=== PATIENT | male | born 1970 | race Caucasian/White ===

== ENCOUNTER 2016-11-20 09:24 | Inpatient (IN) ==
--- NOTE | 2016-11-20 09:37 | Emergency Department Note ---
Disposition Clinical Impression: Pneumonia, Sepsis, Altered mental status Disposition: Admitted As Inpatient Condition: Fair General Adult HPI - General Chief complaint: ED Fever Stated complaint: Hypoxia, AMS, Fever Time Seen by Provider: 11/20/16 09:32 Source: patient, family Limitations: no limitations - History of Present Illness Pain Scale: 10 - Related Data Home Medications Medication Instructions Recorded Confirmed Albuterol Sulfate [Proair Hfa] 2 puff IH Q4H PRN 11/20/16 11/20/16 BuPROPion SR (12 HR) [Wellbutrin 200 mg PO QAM 11/20/16 11/20/16 SR] Budesonide/Formoterol 160/4.5 2 puff IH BIDR 11/20/16 11/20/16 [Symbicort 160/4.5] Imipramine HCl [Tofranil] 50 mg PO HS 11/20/16 11/20/16 Ipratropium/Albuterol Neb [Duoneb] 3 ml IH Q6HR 11/20/16 11/20/16 [place] Carbonate 900 mg PO HS 11/20/16 11/20/16 Lovastatin 10 mg PO DAILY 11/20/16 11/20/16 Morphine Sulfate/Naltrexone 1 cap PO BID 11/20/16 11/20/16 [Embeda ER 30-1.2 mg Capsule] Omeprazole [PriLOSEC] 40 mg PO DAILY 11/20/16 11/20/16 Oxybutynin [Ditropan] 5 mg PO BID 11/20/16 11/20/16 Pregabalin [Lyrica] 150 mg PO TID 11/20/16 11/20/16 Zolpidem [Ambien] 10 mg PO HS 11/20/16 11/20/16 diazePAM [Valium] 10 mg PO TID 11/20/16 11/20/16 lamoTRIgine [Lamictal] 400 mg PO DAILY 11/20/16 11/20/16 Allergies Allergy/AdvReac Type Severity Reaction Status Date / Time vancomycin Allergy Hives Verified 11/20/16 09:25 Past Medical History - Past Medical History Medical history: Reports: COPD, hypertension Psychiatric history: Reports: bipolar, PTSD - Social History Smoking Status: Former smoker Smokeless Tobacco Status: No Alcohol use: Reports: none Drug use: Reports: none Physical Exam - General Limitations: no limitations General appearance: alert, in no apparent distress Course Vital Signs Temperature 101.2 F H 11/20/16 09:25 Pulse Rate 108 11/20/16 09:25 Respiratory Rate 18 11/20/16 09:25 Blood Pressure 115/77 11/20/16 09:25 O2 Sat by Pulse Oximetry 84 11/20/16 09:25 Temperature 98.2 F 11/20/16 16:25 Pulse Rate 74 11/20/16 16:25 Respiratory Rate 15 11/20/16 16:25 Blood Pressure 101/68 11/20/16 16:25 O2 Sat by Pulse Oximetry 95 11/20/16 16:25 Oxygen Delivery Oxygen Delivery Nasal Cannula Medical Decision Making - Lab Data Result diagrams: 11/20/16 09:51 11/20/16 09:51 Lab Results 11/20/16 11/20/16 11/20/16 Range/Units 09:47 09:51 09:51 WBC 12.2 H (4.3-11.1) K/mcL RBC 4.77 (4.19-5.50) M/mcL Hgb 14.1 (12.9-16.9) g/dL Hct 44.5 (37.5-50.1) % MCV 93.3 (83.0-100.0) fL MCH 29.6 (28.0-33.3) pg MCHC 31.7 (31.6-35.5) g/dL RDW 13.0 (11.5-14.5) % Plt Count 402 H (140-400) K/mcL MPV 9.1 L (9.4-12.4) fL Immature Gran % 0.3 (0-4) % Seg Neutrophils % 84.2 % Lymphocytes % 10.0 % Monocytes % 3.0 % Eosinophils % 2.3 % Basophils % 0.2 % Neutrophils # 10.2 H (1.6-8.9) K/mcL Lymphocytes # 1.2 (0.6-4.6) K/mcL Monocytes # 0.4 (0.0-1.3) K/mcL Eosinophils # 0.3 (0.0-0.6) K/mcL Basophils # 0.0 (0.0-0.2) K/mcL PT 11.6 (9.4-12.1) Seconds INR 1.1 APTT 34.4 (26.0-36.0) Seconds ABG pH 7.41 (7.32-7.45) pH Units ABG pCO2 45 (35-45) mmHg ABG pO2 57 L (85-104) mmHg ABG HCO3 28.5 H (21-27) mEQ/L ABG Total CO2 29.9 H (20-26) mEq/L ABG O2 Saturation 90 L (95-98) % ABG Base Excess 3.2 H (-2.0 to 3.0) mEq/L Blood Gas Modality [place] Inspired O2 36 % Sodium (136-145) mEq/L Potassium (3.5-4.5) mEq/L Chloride (98-109) mEq/L Carbon Dioxide (19-29) mEq/L BUN (8-26) mg/dL Creatinine (0.72-1.25) mg/dL Est GFR ( Amer) (> 60) Est GFR (Non-Af Amer) (> 60) BUN/Creatinine Ratio (6-26) Glucose (70-99) mg/dL Calculated Osmolality (280-300) Lactic Acid (0.5-2.2) mmol/L Calcium (8.6-10.8) mg/dL Phosphorus (2.3-4.7) mg/dL Magnesium (1.6-2.6) mg/dL Total Bilirubin (0.2-1.2) mg/dL Direct Bilirubin (0.0-0.5) mg/dL Indirect Bilirubin (0.0-1.2) mg/dL AST (5-34) Units/L ALT (0-55) Units/L Alkaline Phosphatase (38-126) Units/L Troponin I (0-0.03) ng/mL Serum Total Protein (6.0-8.3) g/dL Albumin (3.5-5.0) g/dL Globulin (2.4-3.5) g/dL Albumin/Globulin Ratio (1.1-2.2) Urine Color (Yellow) Urine Clarity (Clear) Urine pH (5.0-8.0) pH Units Ur Specific [place] (1.010-1.025) Urine Protein (Neg-Trace) mg/dL Urine Glucose (UA) (Normal) mg/dL Urine Ketones (Negative) mg/dL Urine Blood (Negative) Urine Nitrite (Negative) Urine Bilirubin (Negative) Urine Urobilinogen (Normal) mg/dL Ur Leukocyte Esterase (Negative) Ur Culture Indicated? (NO) 11/20/16 11/20/16 11/20/16 Range/Units 09:51 09:51 09:51 WBC (4.3-11.1) K/mcL RBC (4.19-5.50) M/mcL Hgb (12.9-16.9) g/dL Hct (37.5-50.1) % MCV (83.0-100.0) fL MCH (28.0-33.3) pg MCHC (31.6-35.5) g/dL RDW (11.5-14.5) % Plt Count (140-400) K/mcL MPV (9.4-12.4) fL Immature Gran % (0-4) % Seg Neutrophils % % Lymphocytes % % Monocytes % % Eosinophils % % Basophils % % Neutrophils # (1.6-8.9) K/mcL Lymphocytes # (0.6-4.6) K/mcL Monocytes # (0.0-1.3) K/mcL Eosinophils # (0.0-0.6) K/mcL Basophils # (0.0-0.2) K/mcL PT (9.4-12.1) Seconds INR APTT (26.0-36.0) Seconds ABG pH (7.32-7.45) pH Units ABG pCO2 (35-45) mmHg ABG pO2 (85-104) mmHg ABG HCO3 (21-27) mEQ/L ABG Total CO2 (20-26) mEq/L ABG O2 Saturation (95-98) % ABG Base Excess (-2.0 to 3.0) mEq/L Blood Gas Modality Inspired O2 % Sodium 143 (136-145) mEq/L Potassium 4.3 (3.5-4.5) mEq/L Chloride 106 (98-109) mEq/L Carbon Dioxide 28 (19-29) mEq/L BUN 12 (8-26) mg/dL Creatinine 1.20 (0.72-1.25) mg/dL Est GFR ( Amer) > 60 (> 60) Est GFR (Non-Af Amer) > 60 (> 60) BUN/Creatinine Ratio 10 (6-26) Glucose 109 H (70-99) mg/dL Calculated Osmolality 296 (280-300) Lactic Acid 1.3 (0.5-2.2) mmol/L Calcium 9.3 (8.6-10.8) mg/dL Phosphorus 2.7 (2.3-4.7) mg/dL Magnesium 2.2 (1.6-2.6) mg/dL Total Bilirubin 0.4 (0.2-1.2) mg/dL Direct Bilirubin 0.2 (0.0-0.5) mg/dL Indirect Bilirubin 0.2 (0.0-1.2) mg/dL AST 14 (5-34) Units/L ALT 9 (0-55) Units/L Alkaline Phosphatase 103 (38-126) Units/L Troponin I (0-0.03) ng/mL Serum Total Protein 8.0 (6.0-8.3) g/dL Albumin 3.6 (3.5-5.0) g/dL Globulin 4.4 H (2.4-3.5) g/dL Albumin/Globulin Ratio 0.8 L (1.1-2.2) Urine Color Yellow (Yellow) Urine Clarity Clear (Clear) Urine pH 6.5 (5.0-8.0) pH Units Ur Specific [place] 1.019 (1.010-1.025) Urine Protein Negative (Neg-Trace) mg/dL Urine Glucose (UA) Normal (Normal) mg/dL Urine Ketones Negative (Negative) mg/dL Urine Blood Negative (Negative) Urine Nitrite Negative (Negative) Urine Bilirubin Negative (Negative) Urine Urobilinogen Normal (Normal) mg/dL Ur Leukocyte Esterase Negative (Negative) Ur Culture Indicated? NO (NO) 11/20/16 Range/Units 09:51 WBC (4.3-11.1) K/mcL RBC (4.19-5.50) M/mcL Hgb (12.9-16.9) g/dL Hct (37.5-50.1) % MCV (83.0-100.0) fL MCH (28.0-33.3) pg MCHC (31.6-35.5) g/dL RDW (11.5-14.5) % Plt Count (140-400) K/mcL MPV (9.4-12.4) fL Immature Gran % (0-4) % Seg Neutrophils % % Lymphocytes % % Monocytes % % Eosinophils % % Basophils % % Neutrophils # (1.6-8.9) K/mcL Lymphocytes # (0.6-4.6) K/mcL Monocytes # (0.0-1.3) K/mcL Eosinophils # (0.0-0.6) K/mcL Basophils # (0.0-0.2) K/mcL PT (9.4-12.1) Seconds INR APTT (26.0-36.0) Seconds ABG pH (7.32-7.45) pH Units ABG pCO2 (35-45) mmHg ABG pO2 (85-104) mmHg ABG HCO3 (21-27) mEQ/L ABG Total CO2 (20-26) mEq/L ABG O2 Saturation (95-98) % ABG Base Excess (-2.0 to 3.0) mEq/L Blood Gas Modality Inspired O2 % Sodium (136-145) mEq/L Potassium (3.5-4.5) mEq/L Chloride (98-109) mEq/L Carbon Dioxide (19-29) mEq/L BUN (8-26) mg/dL Creatinine (0.72-1.25) mg/dL Est GFR ( Amer) (> 60) Est GFR (Non-Af Amer) (> 60) BUN/Creatinine Ratio (6-26) Glucose (70-99) mg/dL Calculated Osmolality (280-300) Lactic Acid (0.5-2.2) mmol/L Calcium (8.6-10.8) mg/dL Phosphorus (2.3-4.7) mg/dL Magnesium (1.6-2.6) mg/dL Total Bilirubin (0.2-1.2) mg/dL Direct Bilirubin (0.0-0.5) mg/dL Indirect Bilirubin (0.0-1.2) mg/dL AST (5-34) Units/L ALT (0-55) Units/L Alkaline Phosphatase (38-126) Units/L Troponin I 0.01 (0-0.03) ng/mL Serum Total Protein (6.0-8.3) g/dL Albumin (3.5-5.0) g/dL Globulin (2.4-3.5) g/dL Albumin/Globulin Ratio (1.1-2.2) Urine Color (Yellow) Urine Clarity (Clear) Urine pH (5.0-8.0) pH Units Ur Specific [place] (1.010-1.025) Urine Protein (Neg-Trace) mg/dL Urine Glucose (UA) (Normal) mg/dL Urine Ketones (Negative) mg/dL Urine Blood (Negative) Urine Nitrite (Negative) Urine Bilirubin (Negative) Urine Urobilinogen (Normal) mg/dL Ur Leukocyte Esterase (Negative) Ur Culture Indicated? (NO) Critical Care Time Critical Care Time: Yes Total Critical Care Time: 30 Attestation: Patient presented with confusion and a fever. He met sepsis criteria. Broad spectrum antibiotics initiated. Admitted to the medicine service Attestation Statement - Attestation Attestation: I examined this patient and my medical decision-making was reviewed with the MANAGING PARTNER/PA/Advanced Practice Nurse/Resident Physician. I agree with the documented findings, disposition and treatment plan as described except to the extent set forth below. [id number] time provided Patient presents to the care of his spouse and son for generalized weakness, confusion, fever. He was recently admitted to the intensive care unit at an outside facility for pneumonia. He completed his outpatient course of antibiotics. The patient is febrile and tachycardic upon presentation. Sepsis pathway initiated. 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
--- NOTE | 2016-11-20 09:43 | Emergency Department Note ---
Disposition Clinical Impression: Pneumonia Qualifiers: Pneumonia type: due to unspecified organism Laterality: right Lung location: lower lobe of lung Qualified Code(s): J18.1 - Lobar pneumonia, unspecified organism Sepsis Qualifiers: Sepsis type: sepsis due to unspecified organism Qualified Code(s): A41.9 - Sepsis, unspecified organism Altered mental status Qualifiers: Altered mental status type: unspecified Qualified Code(s): R41.82 - Altered mental status, unspecified Disposition: Admitted As Inpatient Condition: Fair General Adult HPI - General Chief complaint: ED Fever Stated complaint: Hypoxia, AMS, Fever Time Seen by Provider: 11/20/16 09:32 Source: patient, family Mode of arrival: ambulatory Limitations: no limitations Nursing Notes Reviewed: Yes Vital Signs Reviewed: Yes - History of Present Illness HPI Narrative: 46-year-old male with a history of COPD, hypertension, traumatic brain injury and recurrent pneumonia presents for evaluation for concerns of pneumonia. Patient was recently hospitalized with ICU admission at [facility] last Monday. Patient was discharged on Monday. Patient completed his outpatient antx which included Augmentin as well as Levaquin. Noted to have worsening shortness of breath and hypoxia in the past 24 hours. Family states that he has been more confused recently. No evidence of trauma. Confusion is described as word salad and "talking out of his head". Patient family states that he did have oxygen saturation of 88%. Typically is on 2 L as needed. Has hx of TBI with residual R leg weakness. Denies any abdominal pain. No nausea vomiting. No anti-inflammatories prior to arrival. Temperature noted to be 101 Fahrenheit prior to arrival. Family states the patient was on Zosyn and Levaquin with improvement. Hx of Vancomycin with hives. Pain Scale: 10 - Related Data Home Medications Medication Instructions Recorded Confirmed Albuterol Sulfate [Proair Hfa] 2 puff IH Q4H PRN 11/20/16 11/20/16 BuPROPion SR (12 HR) [Wellbutrin 200 mg PO QAM 11/20/16 11/20/16 SR] Budesonide/Formoterol 160/4.5 2 puff IH BIDR 11/20/16 11/20/16 [Symbicort 160/4.5] Imipramine HCl [Tofranil] 50 mg PO HS 11/20/16 11/20/16 Ipratropium/Albuterol Neb [Duoneb] 3 ml IH Q6HR 11/20/16 11/20/16 [place] Carbonate 900 mg PO HS 11/20/16 11/20/16 Lovastatin 10 mg PO DAILY 11/20/16 11/20/16 Morphine Sulfate/Naltrexone 1 cap PO BID 11/20/16 11/20/16 [Embeda ER 30-1.2 mg Capsule] Omeprazole [PriLOSEC] 40 mg PO DAILY 11/20/16 11/20/16 Oxybutynin [Ditropan] 5 mg PO BID 11/20/16 11/20/16 Pregabalin [Lyrica] 150 mg PO TID 11/20/16 11/20/16 Zolpidem [Ambien] 10 mg PO HS 11/20/16 11/20/16 diazePAM [Valium] 10 mg PO TID 11/20/16 11/20/16 lamoTRIgine [Lamictal] 400 mg PO DAILY 11/20/16 11/20/16 Allergies Allergy/AdvReac Type Severity Reaction Status Date / Time vancomycin Allergy Hives Verified 11/20/16 09:25 All systems ED: reviewed and negative except as stated. Constitutional: Reports: as per HPI, fever Eyes: Reports: as per HPI ENT ED: Reports: as per HPI Cardiovascular: Reports: as per HPI Respiratory: Reports: as per HPI, cough, dyspnea Gastrointestinal: Reports: as per HPI. Denies: nausea, vomiting Genitourinary: Reports: as per HPI Musculoskeletal: Reports: as per HPI Integumentary: Reports: as per HPI Neurological: Reports: as per HPI Psychiatric: Reports: as per HPI Endocrine: Reports: as per HPI Hematological/Lymphatic: Reports: as per HPI Past Medical History - Past Medical History Medical history: Reports: COPD, hypertension Psychiatric history: Reports: bipolar, PTSD - Social History Smoking Status: Former smoker Smokeless Tobacco Status: No Alcohol use: Reports: none Drug use: Reports: none Physical Exam - General Limitations: no limitations General appearance: alert, in no apparent distress - Head Head exam: atraumatic, normocephalic, normal inspection - Eye Eye exam: Present: normal appearance, PERRL, EOMI - ENT ENT exam: normal exam, normal oropharynx, mucous membranes moist - Neck Neck exam: Present: normal inspection, full ROM, trachea midline - Chest Chest inspection: Present: normal inspection, symmetric chest wall rise - Respiratory Respiratory exam: Present: other (Diffusely decreased breath sounds). Absent: wheezes - Cardiovascular Cardiovascular exam: Present: regular rate, normal rhythm, normal heart sounds - Abdominal Exam Abdominal exam: Present: soft, Non-Tender - Extremities Exam Extremities exam: Present: normal inspection. Absent: pedal edema - Back Exam Back exam: Present: normal inspection. Absent: CVA tenderness (R), CVA tenderness (L) - Neurological Exam Neurological exam: Present: alert, other (Confused) - Skin Skin exam: Present: warm, dry, intact, normal color Course Course Narrative: Initial concerns for sepsis given the patient's mental status, hypoxia, and history. Patient will receive a sepsis workup including labs. Possible source pneumonia. Patient will get chest x-ray, labs, EKG, fluids anti-inflammatories and antibiotics. - Reevaluation(s) Reevaluation #1: Seen and examined. Patient's receiving IV fluid hydration. Patient remains tachycardic. Patient is not hypoxic but is on increased oxygen supplementation. Concerns for pneumonia and started on antibiotics which were similar to antibiotics the patient received at [facility] with improvement. Family wishes to stay at [place]. Does not wish to be transferred back to [facility]. Time: 10:21 Reevaluation #2: Updated on plan of care. Time: 10:59 Vital Signs Temperature 101.2 F H 11/20/16 09:25 Pulse Rate 108 11/20/16 09:25 Respiratory Rate 18 11/20/16 09:25 Blood Pressure 115/77 11/20/16 09:25 O2 Sat by Pulse Oximetry 84 11/20/16 09:25 Temperature 101.2 F H 11/20/16 09:25 Pulse Rate 100 11/20/16 11:00 Respiratory Rate 20 11/20/16 11:40 Blood Pressure 123/78 11/20/16 11:40 O2 Sat by Pulse Oximetry 94 11/20/16 11:00 Oxygen Delivery Oxygen Delivery Nasal Cannula Medical Decision Making - MDM Narrative Medical decision making narrative: 46-year-old male presents for evaluation of hypoxia and concerns for pneumonia. Patient was recently hospitalized in the past week. The patient was treated with Zosyn as well as Levaquin inpatient with success. Patient completed his outpatient bionics Augmentin and Levaquin recently. In the past 24 hours the patient's family report that he has been having altered mental status with word salad and confusion. Denies history of head injury. Denies any anticoagulation. Patient is alert and does appear to have rapid speech. Patient has a history of traumatic brain injury with residual right lower extremity weakness. Otherwise neuro exam is unremarkable. Patient did have a temperature and given his history and hypoxia concerns for sepsis pneumonia. Patient was treated with IV fluid hydration 30 mL/kg as well as appropriate antibiotics with Zosyn and Levaquin. Patient does not exhibit any meningeal signs or symptoms. No neck stiffness. Patient will get a head CT to rule out any potential bleeding. Patient updated on plan of care. Family agreed. Patient will be admitted to the hospitalist service for further care and monitoring. - Lab Data Lab results reviewed: Yes I reviewed the patient's lab results. Result diagrams: 11/20/16 09:51 11/20/16 09:51 Lab Results 11/20/16 11/20/16 11/20/16 Range/Units 09:47 09:51 09:51 WBC 12.2 H (4.3-11.1) K/mcL RBC 4.77 (4.19-5.50) M/mcL Hgb 14.1 (12.9-16.9) g/dL Hct 44.5 (37.5-50.1) % MCV 93.3 (83.0-100.0) fL MCH 29.6 (28.0-33.3) pg MCHC 31.7 (31.6-35.5) g/dL RDW 13.0 (11.5-14.5) % Plt Count 402 H (140-400) K/mcL MPV 9.1 L (9.4-12.4) fL Immature Gran % 0.3 (0-4) % Seg Neutrophils % 84.2 % Lymphocytes % 10.0 % Monocytes % 3.0 % Eosinophils % 2.3 % Basophils % 0.2 % Neutrophils # 10.2 H (1.6-8.9) K/mcL Lymphocytes # 1.2 (0.6-4.6) K/mcL Monocytes # 0.4 (0.0-1.3) K/mcL Eosinophils # 0.3 (0.0-0.6) K/mcL Basophils # 0.0 (0.0-0.2) K/mcL PT 11.6 (9.4-12.1) Seconds INR 1.1 APTT 34.4 (26.0-36.0) Seconds ABG pH 7.41 (7.32-7.45) pH Units ABG pCO2 45 (35-45) mmHg ABG pO2 57 L (85-104) mmHg ABG HCO3 28.5 H (21-27) mEQ/L ABG Total CO2 29.9 H (20-26) mEq/L ABG O2 Saturation 90 L (95-98) % ABG Base Excess 3.2 H (-2.0 to 3.0) mEq/L Blood Gas Modality [place] Inspired O2 36 % Sodium (136-145) mEq/L Potassium (3.5-4.5) mEq/L Chloride (98-109) mEq/L Carbon Dioxide (19-29) mEq/L BUN (8-26) mg/dL Creatinine (0.72-1.25) mg/dL Est GFR ( Amer) (> 60) Est GFR (Non-Af Amer) (> 60) BUN/Creatinine Ratio (6-26) Glucose (70-99) mg/dL Calculated Osmolality (280-300) Lactic Acid (0.5-2.2) mmol/L Calcium (8.6-10.8) mg/dL Phosphorus (2.3-4.7) mg/dL Magnesium (1.6-2.6) mg/dL Total Bilirubin (0.2-1.2) mg/dL Direct Bilirubin (0.0-0.5) mg/dL Indirect Bilirubin (0.0-1.2) mg/dL AST (5-34) Units/L ALT (0-55) Units/L Alkaline Phosphatase (38-126) Units/L Troponin I (0-0.03) ng/mL Serum Total Protein (6.0-8.3) g/dL Albumin (3.5-5.0) g/dL Globulin (2.4-3.5) g/dL Albumin/Globulin Ratio (1.1-2.2) Urine Color (Yellow) Urine Clarity (Clear) Urine pH (5.0-8.0) pH Units Ur Specific [place] (1.010-1.025) Urine Protein (Neg-Trace) mg/dL Urine Glucose (UA) (Normal) mg/dL Urine Ketones (Negative) mg/dL Urine Blood (Negative) Urine Nitrite (Negative) Urine Bilirubin (Negative) Urine Urobilinogen (Normal) mg/dL Ur Leukocyte Esterase (Negative) Ur Culture Indicated? (NO) 11/20/16 11/20/16 11/20/16 Range/Units 09:51 09:51 09:51 WBC (4.3-11.1) K/mcL RBC (4.19-5.50) M/mcL Hgb (12.9-16.9) g/dL Hct (37.5-50.1) % MCV (83.0-100.0) fL MCH (28.0-33.3) pg MCHC (31.6-35.5) g/dL RDW (11.5-14.5) % Plt Count (140-400) K/mcL MPV (9.4-12.4) fL Immature Gran % (0-4) % Seg Neutrophils % % Lymphocytes % % Monocytes % % Eosinophils % % Basophils % % Neutrophils # (1.6-8.9) K/mcL Lymphocytes # (0.6-4.6) K/mcL Monocytes # (0.0-1.3) K/mcL Eosinophils # (0.0-0.6) K/mcL Basophils # (0.0-0.2) K/mcL PT (9.4-12.1) Seconds INR APTT (26.0-36.0) Seconds ABG pH (7.32-7.45) pH Units ABG pCO2 (35-45) mmHg ABG pO2 (85-104) mmHg ABG HCO3 (21-27) mEQ/L ABG Total CO2 (20-26) mEq/L ABG O2 Saturation (95-98) % ABG Base Excess (-2.0 to 3.0) mEq/L Blood Gas Modality Inspired O2 % Sodium 143 (136-145) mEq/L Potassium 4.3 (3.5-4.5) mEq/L Chloride 106 (98-109) mEq/L Carbon Dioxide 28 (19-29) mEq/L BUN 12 (8-26) mg/dL Creatinine 1.20 (0.72-1.25) mg/dL Est GFR ( Amer) > 60 (> 60) Est GFR (Non-Af Amer) > 60 (> 60) BUN/Creatinine Ratio 10 (6-26) Glucose 109 H (70-99) mg/dL Calculated Osmolality 296 (280-300) Lactic Acid 1.3 (0.5-2.2) mmol/L Calcium 9.3 (8.6-10.8) mg/dL Phosphorus 2.7 (2.3-4.7) mg/dL Magnesium 2.2 (1.6-2.6) mg/dL Total Bilirubin 0.4 (0.2-1.2) mg/dL Direct Bilirubin 0.2 (0.0-0.5) mg/dL Indirect Bilirubin 0.2 (0.0-1.2) mg/dL AST 14 (5-34) Units/L ALT 9 (0-55) Units/L Alkaline Phosphatase 103 (38-126) Units/L Troponin I (0-0.03) ng/mL Serum Total Protein 8.0 (6.0-8.3) g/dL Albumin 3.6 (3.5-5.0) g/dL Globulin 4.4 H (2.4-3.5) g/dL Albumin/Globulin Ratio 0.8 L (1.1-2.2) Urine Color Yellow (Yellow) Urine Clarity Clear (Clear) Urine pH 6.5 (5.0-8.0) pH Units Ur Specific [place] 1.019 (1.010-1.025) Urine Protein Negative (Neg-Trace) mg/dL Urine Glucose (UA) Normal (Normal) mg/dL Urine Ketones Negative (Negative) mg/dL Urine Blood Negative (Negative) Urine Nitrite Negative (Negative) Urine Bilirubin Negative (Negative) Urine Urobilinogen Normal (Normal) mg/dL Ur Leukocyte Esterase Negative (Negative) Ur Culture Indicated? NO (NO) 11/20/16 Range/Units 09:51 WBC (4.3-11.1) K/mcL RBC (4.19-5.50) M/mcL Hgb (12.9-16.9) g/dL Hct (37.5-50.1) % MCV (83.0-100.0) fL MCH (28.0-33.3) pg MCHC (31.6-35.5) g/dL RDW (11.5-14.5) % Plt Count (140-400) K/mcL MPV (9.4-12.4) fL Immature Gran % (0-4) % Seg Neutrophils % % Lymphocytes % % Monocytes % % Eosinophils % % Basophils % % Neutrophils # (1.6-8.9) K/mcL Lymphocytes # (0.6-4.6) K/mcL Monocytes # (0.0-1.3) K/mcL Eosinophils # (0.0-0.6) K/mcL Basophils # (0.0-0.2) K/mcL PT (9.4-12.1) Seconds INR APTT (26.0-36.0) Seconds ABG pH (7.32-7.45) pH Units ABG pCO2 (35-45) mmHg ABG pO2 (85-104) mmHg ABG HCO3 (21-27) mEQ/L ABG Total CO2 (20-26) mEq/L ABG O2 Saturation (95-98) % ABG Base Excess (-2.0 to 3.0) mEq/L Blood Gas Modality Inspired O2 % Sodium (136-145) mEq/L Potassium (3.5-4.5) mEq/L Chloride (98-109) mEq/L Carbon Dioxide (19-29) mEq/L BUN (8-26) mg/dL Creatinine (0.72-1.25) mg/dL Est GFR ( Amer) (> 60) Est GFR (Non-Af Amer) (> 60) BUN/Creatinine Ratio (6-26) Glucose (70-99) mg/dL Calculated Osmolality (280-300) Lactic Acid (0.5-2.2) mmol/L Calcium (8.6-10.8) mg/dL Phosphorus (2.3-4.7) mg/dL Magnesium (1.6-2.6) mg/dL Total Bilirubin (0.2-1.2) mg/dL Direct Bilirubin (0.0-0.5) mg/dL Indirect Bilirubin (0.0-1.2) mg/dL AST (5-34) Units/L ALT (0-55) Units/L Alkaline Phosphatase (38-126) Units/L Troponin I 0.01 (0-0.03) ng/mL Serum Total Protein (6.0-8.3) g/dL Albumin (3.5-5.0) g/dL Globulin (2.4-3.5) g/dL Albumin/Globulin Ratio (1.1-2.2) Urine Color (Yellow) Urine Clarity (Clear) Urine pH (5.0-8.0) pH Units Ur Specific [place] (1.010-1.025) Urine Protein (Neg-Trace) mg/dL Urine Glucose (UA) (Normal) mg/dL Urine Ketones (Negative) mg/dL Urine Blood (Negative) Urine Nitrite (Negative) Urine Bilirubin (Negative) Urine Urobilinogen (Normal) mg/dL Ur Leukocyte Esterase (Negative) Ur Culture Indicated? (NO) - Radiology Data Radiology results reviewed: Yes I reviewed the patient's radiology results. Chest X-Ray 11/20/16 09:34 IMPRESSION: Slightly increased interstitial opacities which may reflect pneumonia or edema. There is more focal airspace opacity in the right lung base which could also represent pneumonia in the appropriate clinical setting. D/ / Supriya Thomason MD / Supriya Thomason MD Interpreting Provider: Supriya Thomason MD - EKG Data EKG #1 EKG shows normal: sinus rhythm Rate: tachycardia Rhythm: NSR [place]/QRS: normal Interpretation: no acute changes, unchanged when compared to prior tracing (date ) S.B.A.R. - S.B.A.R. Situation: Demographics Background: Presenting Complaint Assessment: Vital Signs, Course and respsone to treatment, Patient/Family Expectation Recommendation: Barrier(s) to disposition, Recommendation based on pending studies, treatments, or consults S.B.A.R. Report Given to: Dr. Prater
[2016-11-20 09:58] LABS: ABG Base Excess 3.2 mEq/L (-2.0 to 3.0); ABG HCO3 28.5 mEQ/L (21-27); ABG Oxygen Saturation 90 % (95-98); ABG PCO2 45 mmHg (35-45); ABG PH 7.41 pH Units (7.32-7.45); ABG PO2 57 mmHg (85-104); ABG TCO2 29.9 mEq/L (20-26)
[2016-11-20 09:59] LABS: Blood Gas FiO2 36 %
[2016-11-20] MEDS: 0.9 % Sodium Chloride 1,000 ML IVC SCH ×4 (10:00→13:50)
[2016-11-20 10:04] LABS: Basophils % 0.2 %; Eosinophils # 0.3 K/mcL (0.0-0.6); Eosinophils % 2.3 %; Hematocrit 44.5 % (37.5-50.1); Hemoglobin 14.1 g/dL (12.9-16.9); Immature Granulocytes % 0.3 % (0-4); Lymphocytes # 1.2 K/mcL (0.6-4.6); Mean Corpuscular HGB Conc 31.7 g/dL (31.6-35.5); Mean Corpuscular Hemoglobin 29.6 pg (28.0-33.3); Mean Corpuscular Volume 93.3 fL (83.0-100.0); Mean Platelet Volume 9.1 fL (9.4-12.4); Monocytes # 0.4 K/mcL (0.0-1.3); Neutrophils # 10.2 K/mcL (1.6-8.9); Platelet Count 402 K/mcL (140-400); Red Blood Count 4.77 M/mcL (4.19-5.50); Segmented Neutrophils % 84.2 %
[2016-11-20 10:06] LABS: Bilirubin,Urine Negative (Negative); Blood,Urine Negative (Negative); Clarity,Urine Clear (Clear); Color,Urine Yellow (Yellow); Glucose,Urine (UA) Normal (Normal); Ketones,Urine Negative (Negative); Leukocyte Esterase,Urine Negative (Negative); Nitrite,Urine Negative (Negative); PH,Urine 6.5 pH Units (5.0-8.0); Protein,Urine Negative (Neg-Trace); Specific Gravity,Urine 1.019 (1.010-1.025); Urobilinogen,Urine Normal (Normal)
[2016-11-20 10:09] LABS: INR 1.1; Prothrombin Time 11.6 Seconds (9.4-12.1)
[2016-11-20] MEDS ORDERED: Piperacillin/Tazobactam 4.5 GM in D5% in Water (Mini-Bag+) 100 ML IVPB ONE ×2 (10:11→10:56)
[2016-11-20 10:12] LABS: Activated Partial Thrombo Time 34.4 Seconds (26.0-36.0)
[2016-11-20] MEDS ORDERED: Levofloxacin 750 MG/150 ML 750 MG/150 ML BAG IVPB ONE (10:13)
[2016-11-20 10:17] LABS: Alanine Aminotransferase 9 Units/L (0-55); Albumin 3.6 g/dL (3.5-5.0); Albumin/Globulin Ratio 0.8 (1.1-2.2); Alkaline Phosphatase 103 Units/L (38-126); Aspartate Amino Transferase 14 Units/L (5-34); BUN/Creatinine Ratio 10 (6-26); Bilirubin,Direct 0.2 mg/dL (0.0-0.5); Bilirubin,Indirect 0.2 mg/dL (0.0-1.2); Bilirubin,Total 0.4 mg/dL (0.2-1.2); Blood Urea Nitrogen 12 mg/dL (8-26); Calcium 9.3 mg/dL (8.6-10.8); Carbon Dioxide 28 mEq/L (19-29); Chloride 106 mEq/L (98-109); Globulin 4.4 g/dL (2.4-3.5); Glucose 109 mg/dL (70-99); Magnesium 2.2 mg/dL (1.6-2.6); Osmolality,Calculated 296 (280-300); Phosphorous 2.7 mg/dL (2.3-4.7); Potassium 4.3 mEq/L (3.5-4.5); Sodium 143 mEq/L (136-145); eGFR For African Americans > 60 (> 60); eGFR For Non-African Americans > 60 (> 60)
[2016-11-20] MEDS ORDERED: Naloxone 0.4 MG/ML INJ IVP PRN (12:21)
[2016-11-20] MEDS ORDERED: Acetaminophen 325 MG TABLET PO PRN (12:21)
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
[2016-11-20] MEDS ORDERED: Vancomycin 1,750 MG in D5% in Water 500 ML IVPB ONE (14:00)
[2016-11-20] MEDS ORDERED: Vancomycin (wt based) 1,000 MG VIAL IVPB SCH (14:00)
[2016-11-20] MEDS: diazePAM 10 MG TABLET PO SCH ×2 (15:34→19:52)
[2016-11-20] MEDS: Pregabalin 75 MG CAPSULE PO SCH ×2 (15:35→19:52)
[2016-11-20] MEDS ORDERED: Piperacillin/Tazobactam 3.375 GM in D5% in Water (Mini-Bag+) 100 ML IVPB SCH (16:00)
[2016-11-20] MEDS ORDERED: *HR* HYDROcodone/Acet 5/325 mg TABLET PO PRN (17:49)
[2016-11-20] MEDS: *HR* Morphine 2 MG/ML SYRINGE IVP PRN (18:02)
[2016-11-20] MEDS: Piperacillin/Tazobactam 3.375 GM in D5% in Water (Mini-Bag+) 100 ML IVPB SCH (19:51)
[2016-11-20] MEDS: Lithium Carbonate 300 MG CAPSULE PO SCH (19:52)
[2016-11-20] MEDS: Sennosides/Docusate Sodium TABLET PO SCH (19:52)
[2016-11-20] MEDS ORDERED: Ipratropium/Albuterol Neb 3 ML ONE (19:56)
[2016-11-20] MEDS: Ipratropium/Albuterol Neb 3 ML IH SCH (21:02)
[2016-11-20] MEDS: Budesonide/Formoterol 160/4.5 MDI IH SCH (21:02)
[2016-11-21] MEDS: Vancomycin 1,250 MG in D5% in Water 250 ML IVPB SCH ×2 (02:08→13:45)
[2016-11-21] MEDS: 0.9 % Sodium Chloride 1,000 ML IVC SCH ×2 (02:08→13:50)
[2016-11-21] MEDS: *HR* Morphine 2 MG/ML SYRINGE IVP PRN ×2 (02:10→11:25)
[2016-11-21] MEDS: Piperacillin/Tazobactam 3.375 GM in D5% in Water (Mini-Bag+) 100 ML IVPB SCH ×3 (03:14→20:30)
[2016-11-21] MEDS: Ipratropium/Albuterol Neb 3 ML IH SCH ×4 (03:48→21:23)
[2016-11-21 05:42] LABS: Basophils % 0.2 %; Eosinophils # 0.3 K/mcL (0.0-0.6); Eosinophils % 2.9 %; Hematocrit 36.5 % (37.5-50.1); Immature Granulocytes % 0.5 % (0-4); Lymphocytes % 18.2 %; Mean Corpuscular HGB Conc 31.8 g/dL (31.6-35.5); Mean Corpuscular Hemoglobin 29.8 pg (28.0-33.3); Mean Corpuscular Volume 93.8 fL (83.0-100.0); Mean Platelet Volume 9.6 fL (9.4-12.4); Monocytes # 0.4 K/mcL (0.0-1.3); Monocytes % 3.9 %; Neutrophils # 8.1 K/mcL (1.6-8.9); Platelet Count 324 K/mcL (140-400); Red Blood Count 3.89 M/mcL (4.19-5.50); Red Cell Distribution Width 13.1 % (11.5-14.5); Segmented Neutrophils % 74.3 %
[2016-11-21 05:43] LABS: Hemoglobin 11.6 g/dL (12.9-16.9)
[2016-11-21 05:57] LABS: BUN/Creatinine Ratio 9 (6-26); Blood Urea Nitrogen 8 mg/dL (8-26); Calcium 8.4 mg/dL (8.6-10.8); Carbon Dioxide 27 mEq/L (19-29); Chloride 109 mEq/L (98-109); Glucose 107 mg/dL (70-99); Osmolality,Calculated 291 (280-300); Potassium 3.9 mEq/L (3.5-4.5); Sodium 141 mEq/L (136-145); eGFR For African Americans > 60 (> 60); eGFR For Non-African Americans > 60 (> 60)
[2016-11-21] MEDS: *HR* Enoxaparin 40 MG/0.4 ML SYRINGE SQ SCH (06:09)
[2016-11-21] MEDS: lamoTRIgine 100 MG TABLET PO SCH (07:44)
[2016-11-21] MEDS: Pregabalin 75 MG CAPSULE PO SCH ×3 (07:45→21:58)
[2016-11-21] MEDS: Sennosides/Docusate Sodium TABLET PO SCH ×2 (07:45→22:00)
[2016-11-21] MEDS: BuPROPion SR (12 HR) 100 MG TABLET PO SCH (07:45)
[2016-11-21] MEDS: diazePAM 10 MG TABLET PO SCH ×3 (07:46→21:59)
[2016-11-21] MEDS: Levofloxacin 750 MG/150 ML 750 MG/150 ML BAG IVPB SCH (07:55)
[2016-11-21] MEDS ORDERED: Pantoprazole 40 MG VIAL IVP SCH (09:00)
[2016-11-21] MEDS: Budesonide/Formoterol 160/4.5 MDI IH SCH ×2 (10:26→21:24)
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
--- NOTE | 2016-11-21 11:55 | Electrocardiograph Report ---
[place] [id number] Test Date: 2016-11-20 Pat Name: Armando Munson Department: 103 Room: 24 Gender: M Cop Breaker: [facility] : 1970 Requested By: Richardson Barr Order Number: [id number] Reading MD: Derrick Keys MD Measurements Intervals [place] Rate: 106 P: 36 DC: 158 QRS: 5 QRSD: 77 T: 39 QT: 362 QTc: 424 Interpretive Statements SINUS TACHYCARDIA Poor R wave progression BASELINE ARTIFACT Electronically Signed On 11-21-2016 11:53:24 EDT by Derrick Keys MD
[2016-11-21] MEDS: *HR* OxyCODONE/APAP 10/325 TABLET PO PRN ×2 (13:44→21:59)
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
[2016-11-21] MEDS: Lithium Carbonate 300 MG CAPSULE PO SCH (22:00)
[2016-11-22 01:10] LABS: Hematocrit 35.7 % (37.5-50.1); Hemoglobin 11.2 g/dL (12.9-16.9); Mean Corpuscular HGB Conc 31.4 g/dL (31.6-35.5); Mean Corpuscular Hemoglobin 28.8 pg (28.0-33.3); Mean Corpuscular Volume 91.8 fL (83.0-100.0); Platelet Count 323 K/mcL (140-400); Red Blood Count 3.89 M/mcL (4.19-5.50); Red Cell Distribution Width 12.9 % (11.5-14.5)
[2016-11-22 01:24] LABS: BUN/Creatinine Ratio 9 (6-26); Blood Urea Nitrogen 8 mg/dL (8-26); Calcium 8.4 mg/dL (8.6-10.8); Carbon Dioxide 28 mEq/L (19-29); Chloride 110 mEq/L (98-109); Glucose 144 mg/dL (70-99); Osmolality,Calculated 297 (280-300); Potassium 3.9 mEq/L (3.5-4.5); Sodium 143 mEq/L (136-145); eGFR For African Americans > 60 (> 60); eGFR For Non-African Americans > 60 (> 60)
[2016-11-22] MEDS: MORPHINE PO SCH ×3 (01:41→21:20)
[2016-11-22] MEDS: NALTREXONE PO SCH ×3 (01:41→21:20)
[2016-11-22] MEDS: Vancomycin 1,250 MG in D5% in Water 250 ML IVPB SCH (02:47)
[2016-11-22] MEDS: Piperacillin/Tazobactam 3.375 GM in D5% in Water (Mini-Bag+) 100 ML IVPB SCH ×3 (03:16→19:59)
[2016-11-22] MEDS: *HR* OxyCODONE/APAP 10/325 TABLET PO PRN ×4 (03:21→16:46)
[2016-11-22] MEDS: Ipratropium/Albuterol Neb 3 ML IH SCH ×4 (04:09→21:33)
[2016-11-22] MEDS: *HR* Enoxaparin 40 MG/0.4 ML SYRINGE SQ SCH (05:15)
[2016-11-22] MEDS: 0.9 % Sodium Chloride 1,000 ML IVC SCH ×2 (08:27→21:32)
[2016-11-22] MEDS: lamoTRIgine 100 MG TABLET PO SCH (08:28)
[2016-11-22] MEDS: diazePAM 10 MG TABLET PO SCH ×3 (08:28→19:58)
[2016-11-22] MEDS: Pregabalin 75 MG CAPSULE PO SCH ×3 (08:28→19:58)
[2016-11-22] MEDS: Sennosides/Docusate Sodium TABLET PO SCH (08:28)
[2016-11-22] MEDS: BuPROPion SR (12 HR) 100 MG TABLET PO SCH (08:28)
[2016-11-22] MEDS: Levofloxacin 750 MG/150 ML 750 MG/150 ML BAG IVPB SCH (08:30)
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
--- NOTE | 2016-11-22 10:06 | EEG/EMG/Oth Biometrics Report ---
EEG Procedure Report Date of procedure: 11/22/16 EEG Procedure: Routine EEG Procedure Note: This is a report of a 21 channel bipolar and referential montage EEG. The posterior dominant rhythm consists of 6-7 Hz moderate voltage or frequency. This rhythm does not attenuate with eye opening. Hyperventilation was not performed during the recording. There is no sleep architecture identified during the study. Photic stimulation is performed and does not produce a driving response. The EKG rhythm strip reveals normal sinus rhythm at 90 bpm. Impressions: This EEG recording is abnormal, consistent with a mild generalized encephalopathy. There is no evidence of epileptiform activity identified during the recording. Comment: Etiologies to explain this interpretation might include toxic, metabolic, post ictal, degenerative, and posttraumatic. If the clinical suspicion for seizure activity is high, see EEGs or perhaps a prolonged recording may increase the yield. Please correlate clinically.
[2016-11-22] MEDS: Budesonide/Formoterol 160/4.5 MDI IH SCH ×2 (10:53→21:33)
--- NOTE | 2016-11-22 11:48 | Neurology Progress Note ---
Date of Encounter: 11/22/16 Time of Encounter: 11:46 Assessment and Plan (1) Traumatic brain injury Current Visit: No Status: Chronic I see obvious evidence of the previous traumatic brain injury, however see no evidence of any acute central nervous system process. I will reevaluate him at your request. Qualifiers: Encounter type: sequela Qualified Code(s): S06.9X9S - Unspecified intracranial injury with loss of consciousness of unspecified duration, sequela Subjective Interval history: The chart was reviewed, the patient was seen and examined. He is currently sitting up in bed in no acute distress. He is wearing his eyeglasses. Yesterday he had a repeat MRI scan of the brain which is unchanged from the previous study, and the EEG study I interpreted myself. Study revealed mild generalized encephalopathy, however no evidence of seizure activity. At this point Mr. Munson I believe is stable from a neurologic perspective. I see no evidence of any acute central nervous system process. He does have difficulty with central processing as a result of the previous traumatic brain injury. At this point however I would expect this should be static. He has numerous chronic pain complaints involving the back neck and lower extremities. Objective - Constitutional Vitals: Temp Pulse Resp BP Pulse Ox 97.6 F 86 16 115/75 97 11/22/16 11:02 11/22/16 11:02 11/22/16 11:02 11/22/16 11:02 11/22/16 11:02 - Neurological Exam Additional comments: Neurologic examination remains unchanged from yesterday from my perspective. He is awake, however his central processing is very bradyphrenic, and this is of course static due to previous traumatic brain injury. He is chronically deconditioned due to inactivity. I do not believe him to be encephalopathic however at this point. I see no evidence of an acute central nervous system infectious or inflammatory process. Results - Laboratory Findings CBC and BMP: 11/22/16 01:03 11/22/16 01:03 Abnormal lab findings: Abnormal lab results RBC 3.89 M/mcL (4.19-5.50) L 11/22/16 01:03 Hgb 11.2 g/dL (12.9-16.9) L 11/22/16 01:03 Hct 35.7 % (37.5-50.1) L 11/22/16 01:03 MCHC 31.4 g/dL (31.6-35.5) L 11/22/16 01:03 MPV 9.0 fL (9.4-12.4) L 11/22/16 01:03 ABG pO2 57 mmHg (85-104) L 11/20/16 09:47 ABG HCO3 28.5 mEQ/L (21-27) H 11/20/16 09:47 ABG Total CO2 29.9 mEq/L (20-26) H 11/20/16 09:47 ABG O2 Saturation 90 % (95-98) L 11/20/16 09:47 ABG Base Excess 3.2 mEq/L (-2.0 to 3.0) H 11/20/16 09:47 Chloride 110 mEq/L (98-109) H 11/22/16 01:03 Glucose 144 mg/dL (70-99) H 11/22/16 01:03 POC Glucose 101 (58-89) H 11/21/16 07:04 Calcium 8.4 mg/dL (8.6-10.8) L 11/22/16 01:03 Globulin 4.4 g/dL (2.4-3.5) H 11/20/16 09:51 Albumin/Globulin Ratio 0.8 (1.1-2.2) L 11/20/16 09:51 [place] 0.1 mEq/L (0.6-1.2) L 11/20/16 12:37 Consult Discharge Plan - Plan Referrals: Manuela Brown CNP [Advanced Practice Nurse] -
[2016-11-22] MEDS: Lithium Carbonate 300 MG CAPSULE PO SCH (19:59)
[2016-11-23] MEDS: Sennosides/Docusate Sodium TABLET PO SCH ×3 (00:26→20:09)
[2016-11-23] MEDS: Ipratropium/Albuterol Neb 3 ML IH SCH ×4 (04:18→23:08)
[2016-11-23] MEDS: Piperacillin/Tazobactam 3.375 GM in D5% in Water (Mini-Bag+) 100 ML IVPB SCH ×3 (04:36→20:08)
[2016-11-23] MEDS: *HR* Enoxaparin 40 MG/0.4 ML SYRINGE SQ SCH (04:36)
[2016-11-23 04:46] LABS: Hematocrit 37.8 % (37.5-50.1); Hemoglobin 11.4 g/dL (12.9-16.9); Mean Corpuscular HGB Conc 30.2 g/dL (31.6-35.5); Mean Corpuscular Hemoglobin 28.4 pg (28.0-33.3); Mean Corpuscular Volume 94.3 fL (83.0-100.0); Mean Platelet Volume 9.1 fL (9.4-12.4); Platelet Count 335 K/mcL (140-400); Red Blood Count 4.01 M/mcL (4.19-5.50); Red Cell Distribution Width 12.9 % (11.5-14.5)
[2016-11-23 05:01] LABS: BUN/Creatinine Ratio 8 (6-26); Blood Urea Nitrogen 7 mg/dL (8-26); Calcium 8.9 mg/dL (8.6-10.8); Carbon Dioxide 27 mEq/L (19-29); Chloride 109 mEq/L (98-109); Glucose 110 mg/dL (70-99); Osmolality,Calculated 291 (280-300); Sodium 141 mEq/L (136-145); eGFR For African Americans > 60 (> 60); eGFR For Non-African Americans > 60 (> 60)
[2016-11-23 05:06] LABS: Potassium 4.6 mEq/L (3.5-4.5)
[2016-11-23] MEDS ORDERED: Aminoglycoside Consult 1 EACH MC ONE (08:29)
[2016-11-23] MEDS: lamoTRIgine 100 MG TABLET PO SCH (08:44)
[2016-11-23] MEDS: diazePAM 10 MG TABLET PO SCH ×3 (08:45→20:09)
[2016-11-23] MEDS: BuPROPion SR (12 HR) 100 MG TABLET PO SCH (08:45)
[2016-11-23] MEDS: Pregabalin 75 MG CAPSULE PO SCH ×3 (08:45→20:09)
[2016-11-23] MEDS: Levofloxacin 750 MG/150 ML 750 MG/150 ML BAG IVPB SCH (08:46)
[2016-11-23] MEDS: MORPHINE PO SCH ×2 (10:02→20:39)
[2016-11-23] MEDS: NALTREXONE PO SCH ×2 (10:02→20:39)
[2016-11-23] MEDS: *HR* OxyCODONE/APAP 10/325 TABLET PO PRN ×3 (10:02→20:21)
[2016-11-23] MEDS: Budesonide/Formoterol 160/4.5 MDI IH SCH ×2 (10:32→23:08)
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
[2016-11-23] MEDS: 0.9 % Sodium Chloride 1,000 ML IVC SCH (11:45)
[2016-11-23] MEDS: Lithium Carbonate 300 MG CAPSULE PO SCH (20:09)
[2016-11-24] MEDS: 0.9 % Sodium Chloride 1,000 ML IVC SCH (00:20)
[2016-11-24] MEDS: Ipratropium/Albuterol Neb 3 ML IH SCH ×3 (03:42→15:36)
[2016-11-24] MEDS: Piperacillin/Tazobactam 3.375 GM in D5% in Water (Mini-Bag+) 100 ML IVPB SCH ×2 (04:21→11:43)
[2016-11-24] MEDS: *HR* OxyCODONE/APAP 10/325 TABLET PO PRN ×3 (04:27→15:48)
[2016-11-24] MEDS: *HR* Enoxaparin 40 MG/0.4 ML SYRINGE SQ SCH (06:08)
[2016-11-24 06:57] LABS: Hematocrit 37.2 % (37.5-50.1); Hemoglobin 11.7 g/dL (12.9-16.9); Mean Corpuscular HGB Conc 31.5 g/dL (31.6-35.5); Mean Corpuscular Hemoglobin 29.7 pg (28.0-33.3); Mean Corpuscular Volume 94.4 fL (83.0-100.0); Mean Platelet Volume 9.5 fL (9.4-12.4); Platelet Count 311 K/mcL (140-400); Red Blood Count 3.94 M/mcL (4.19-5.50)
[2016-11-24 07:10] LABS: BUN/Creatinine Ratio 9 (6-26); Blood Urea Nitrogen 8 mg/dL (8-26); Calcium 8.9 mg/dL (8.6-10.8); Carbon Dioxide 31 mEq/L (19-29); Chloride 107 mEq/L (98-109); Glucose 97 mg/dL (70-99); Osmolality,Calculated 292 (280-300); Potassium 4.1 mEq/L (3.5-4.5); Sodium 142 mEq/L (136-145); eGFR For African Americans > 60 (> 60); eGFR For Non-African Americans > 60 (> 60)
[2016-11-24] MEDS: lamoTRIgine 100 MG TABLET PO SCH (08:17)
[2016-11-24] MEDS: diazePAM 10 MG TABLET PO SCH ×2 (08:18→15:49)
[2016-11-24] MEDS: Sennosides/Docusate Sodium TABLET PO SCH (08:18)
[2016-11-24] MEDS: Pregabalin 75 MG CAPSULE PO SCH ×2 (08:18→15:49)
[2016-11-24] MEDS: BuPROPion SR (12 HR) 100 MG TABLET PO SCH (08:18)
[2016-11-24] MEDS ORDERED: levoFLOXacin 750 MG TABLET PO SCH (09:00)
[2016-11-24] MEDS: NALTREXONE PO SCH (09:29)
[2016-11-24] MEDS: MORPHINE PO SCH (09:29)
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
[2016-11-24] MEDS: Budesonide/Formoterol 160/4.5 MDI IH SCH (10:55)
[2016-11-24 11:24] VITALS: BP 106/75
== END 2016-11-24 16:49 | disposition home or self-care (01) | DRG 720 ==
LOC: EMEROO 09:24 → 2ANU 11:12
PROVIDERS: ADMIT Nurse Practitioner Acute Care; ATTEND Internal Medicine

== ENCOUNTER 2020-08-27 20:31 | Inpatient (IN) ==
[2020-08-27] MEDS ORDERED: 0.9 % Sodium Chloride 1,000 ML IVC ONE (20:40)
[2020-08-27] MEDS ORDERED: *HR* FentaNYL (PF) 1,000 MCG/20 ML VIAL ONE (20:47)
[2020-08-27 21:00] LABS: Basophils # 0.1 K/mcL (0.0-0.2); Basophils % 0.6 %; Eosinophils # 0.2 K/mcL (0.0-0.6); Eosinophils % 1.7 %; Hematocrit 46.2 % (37.5-50.1); Hemoglobin 15.2 g/dL (12.9-16.9); Immature Granulocytes % 0.4 % (0-4); Lymphocytes # 4.3 K/mcL (0.6-4.6); Lymphocytes % 41.4 %; Mean Corpuscular HGB Conc 32.9 g/dL (31.6-35.5); Mean Corpuscular Hemoglobin 32.6 pg (28.0-33.3); Mean Corpuscular Volume 99.1 fL (83.0-100.0); Mean Platelet Volume 9.4 fL (9.4-12.4); Monocytes # 0.8 K/mcL (0.0-1.3); Monocytes % 7.5 %; Platelet Count 289 K/mcL (140-400); Red Blood Count 4.66 M/mcL (4.19-5.50); Red Cell Distribution Width 12.2 % (11.5-14.5); Segmented Neutrophils % 48.4 %; White Blood Count 10.4 K/mcL (4.3-11.1)
[2020-08-27] MEDS: FentaNYL (PF) 1,000 MCG/100 ML IV.SOLN IVC SCH (21:00)
[2020-08-27] MEDS ORDERED: 0.9 % Sodium Chloride 1,000 ML ONE (21:05)
[2020-08-27 21:07] LABS: ABG Base Excess -6 mEq/L (-2 to 3); ABG HCO3 23 mEq/L (21-27); ABG Oxygen Saturation 100 % (95-98); ABG PCO2 56 mmHg (35-45); ABG PH 7.22 pH Units (7.32-7.45); ABG PO2 274 mmHg (85-104); ABG TCO2 25 mEq/L (20-26)
[2020-08-27 21:14] LABS: Bilirubin,Urine Negative (Negative); Blood,Urine Negative (Negative); Clarity,Urine Clear (Clear); Color,Urine Colorless (Yellow); Glucose,Urine (UA) Normal (Normal); Ketones,Urine Negative (Negative); Leukocyte Esterase,Urine Negative (Negative); Nitrite,Urine Negative (Negative); Protein,Urine Negative (Neg-Trace); Specific Gravity,Urine 1.006 (1.010-1.025); Urobilinogen,Urine Normal (Normal)
[2020-08-27 21:23] LABS: Alanine Aminotransferase 10 Units/L (7-52); Albumin 4.3 g/dL (3.5-5.7); Albumin/Globulin Ratio 1.3 (1.1-2.2); Alkaline Phosphatase 84 Units/L (34-104); Aspartate Amino Transferase 26 Units/L (13-39); BUN/Creatinine Ratio 15 (6-26); Bilirubin,Total 0.5 mg/dL (0.3-1.0); Blood Urea Nitrogen 14 mg/dL (6-20); Calcium 8.4 mg/dL (8.6-10.3); Carbon Dioxide 19 mEq/L (23-29); Chloride 101 mEq/L (98-107); Ethanol 414 mg/dL (Less than 10); Globulin 3.2 g/dL (2.4-3.5); Glucose 106 mg/dL (70-105); Lipase 17 Units/L (11-82); Osmolality,Calculated 281 (280-300); Potassium 3.6 mEq/L (3.5-5.1); Sodium 135 mEq/L (136-145); Total Protein 7.5 g/dL (6.4-8.9); Troponin I < 0.03 ng/mL (< 0.04); eGFR For African Americans > 60 (> 60); eGFR For Non-African Americans > 60 (> 60)
[2020-08-27 21:55] LABS: Amphetamine Screen,Urine Negative ng/mL (Cutoff=1000); Barbiturate Screen,Urine Negative ng/mL (Cutoff=200); Benzodiazepines Screen,Urine Positive ng/mL (Cutoff=200); Cannabinoid Screen,Urine Negative ng/mL (Cutoff = 50); Cocaine Screen,Urine Negative ng/mL (Cutoff= 300); Opiate Screen,Urine Negative ng/mL (Cutoff=300); Phencyclidine Screen,Urine Negative ng/mL (Cutoff=25)
[2020-08-27] MEDS ORDERED: Ampicillin/Sulbactam 1,500 MG in 0.9 % Sodium Chloride Mini Bag 100 ML IVPB ONE (22:44)
[2020-08-27] MEDS ORDERED: 0.9 % Sodium Chloride 1,000 ML IVC SCH (23:45)
[2020-08-27] MEDS ORDERED: Naloxone 0.4 MG/ML INJ IVP PRN (23:52)
[2020-08-28] MEDS ORDERED: Artificial Tears SOLN 15 ML BOTTLE BOTH EYES PRN
[2020-08-28] MEDS ORDERED: Albuterol 2.5 MG/3 ML NEBULIZER IH PRN (00:06)
[2020-08-28] MEDS: Artificial Tears SOLN 15 ML BOTTLE BOTH EYES SCH ×3 (00:54→08:03)
[2020-08-28 01:58] LABS: Basophils % 0.2 %; Eosinophils % 0.4 %; Hematocrit 42.3 % (37.5-50.1); Hemoglobin 13.7 g/dL (12.9-16.9); Immature Granulocytes % 0.3 % (0-4); Lymphocytes # 2.1 K/mcL (0.6-4.6); Lymphocytes % 23.9 %; Mean Corpuscular HGB Conc 32.4 g/dL (31.6-35.5); Mean Corpuscular Hemoglobin 32.5 pg (28.0-33.3); Mean Corpuscular Volume 100.2 fL (83.0-100.0); Mean Platelet Volume 9.3 fL (9.4-12.4); Monocytes # 0.4 K/mcL (0.0-1.3); Monocytes % 4.7 %; Neutrophils # 6.3 K/mcL (1.6-8.9); Platelet Count 274 K/mcL (140-400); Red Blood Count 4.22 M/mcL (4.19-5.50); Red Cell Distribution Width 12.3 % (11.5-14.5); Segmented Neutrophils % 70.5 %; White Blood Count 8.9 K/mcL (4.3-11.1)
[2020-08-28 02:17] LABS: Alanine Aminotransferase 17 Units/L (7-52); Albumin 3.7 g/dL (3.5-5.7); Albumin/Globulin Ratio 1.3 (1.1-2.2); Alkaline Phosphatase 71 Units/L (34-104); Aspartate Amino Transferase 24 Units/L (13-39); BUN/Creatinine Ratio 13 (6-26); Bilirubin,Direct 0.1 mg/dL (0.0-0.2); Bilirubin,Indirect 0.5 mg/dL (0.0-1.0); Bilirubin,Total 0.6 mg/dL (0.3-1.0); Blood Urea Nitrogen 12 mg/dL (6-20); Calcium 7.6 mg/dL (8.6-10.3); Carbon Dioxide 18 mEq/L (23-29); Chloride 107 mEq/L (98-107); Globulin 2.8 g/dL (2.4-3.5); Glucose 107 mg/dL (70-105); Magnesium 2.2 mg/dL (1.6-2.6); Osmolality,Calculated 286 (280-300); Potassium 3.8 mEq/L (3.5-5.1); Sodium 138 mEq/L (136-145); Total Protein 6.5 g/dL (6.4-8.9); eGFR For African Americans > 60 (> 60); eGFR For Non-African Americans > 60 (> 60)
[2020-08-28] MEDS: FentaNYL (PF) 1,000 MCG/100 ML IV.SOLN IVC SCH (03:58)
[2020-08-28 04:46] LABS: ABG Base Excess -5 mEq/L (-2 to 3); ABG HCO3 23 mEq/L (21-27); ABG Oxygen Saturation 95 % (95-98); ABG PCO2 54 mmHg (35-45); ABG PH 7.23 pH Units (7.32-7.45); ABG PO2 91 mmHg (85-104); ABG TCO2 24 mEq/L (20-26); Blood Gas Modality AF; Blood Gas VT 500 cc
[2020-08-28] MEDS: Ipratropium/Albuterol Neb 3 ML IH SCH ×4 (05:24→22:24)
[2020-08-28] MEDS: *HR* Enoxaparin 40 MG/0.4 ML SYRINGE SQ SCH (05:29)
[2020-08-28] MEDS: Pantoprazole 40 MG VIAL IVP SCH (08:02)
[2020-08-28] MEDS: Piperacillin/Tazobactam 3.375 GM in 0.9 % Sodium Chloride Mini Bag 100 ML IVPB SCH ×2 (08:02→16:18)
[2020-08-28] MEDS: Calcium Gluconate 1gm/50mL 1 GM/50 ML BAG IVPB SCH ×2 (08:02→09:09)
[2020-08-28] MEDS: lamoTRIgine 100 MG TABLET PO SCH ×2 (08:03→22:15)
[2020-08-28] MEDS ORDERED: Chlorhexidine Rinse 15 ML MOUTHWASH MM SCH (09:00)
[2020-08-28 14:38] LABS: VBG Ionized Calcium 1.05 mmol/L (1.15-1.35)
[2020-08-28] MEDS ORDERED: Thiamine (B-1) 100 MG, Folic Acid 1 MG, MVI, adult with vitamin K 10 ML in 0.9 % Sodi... IVPB SCH (18:00)
[2020-08-28] MEDS: diazePAM 5 MG TABLET PO SCH (22:46)
[2020-08-29] MEDS: Piperacillin/Tazobactam 3.375 GM in 0.9 % Sodium Chloride Mini Bag 100 ML IVPB SCH ×4 (00:11→23:45)
[2020-08-29 01:04] LABS: BUN/Creatinine Ratio 13 (6-26); Blood Urea Nitrogen 12 mg/dL (6-20); Calcium 8.3 mg/dL (8.6-10.3); Carbon Dioxide 23 mEq/L (23-29); Chloride 107 mEq/L (98-107); Glucose 92 mg/dL (70-105); Osmolality,Calculated 285 (280-300); Potassium 3.9 mEq/L (3.5-5.1); Sodium 138 mEq/L (136-145); eGFR For African Americans > 60 (> 60); eGFR For Non-African Americans > 60 (> 60)
[2020-08-29] MEDS ORDERED: diazePAM 10 MG/2 ML SYRINGE IVP PRN ×6 (01:20→11:05)
[2020-08-29] MEDS: Ipratropium/Albuterol Neb 3 ML IH SCH ×4 (03:40→22:18)
[2020-08-29 05:33] LABS: Acinetobacter baumannii by PCR Not Detected (Not Detect); Candida albicans by PCR Not Detected (Not Detect); Candida glabrata by PCR Not Detected (Not Detect); Candida krusei by PCR Not Detected (Not Detect); Candida parapsilosis by PCR Not Detected (Not Detect); Candida tropicalis by PCR Not Detected (Not Detect); Enterobacter cloacae Cmplx PCR Not Detected (Not Detect); Enterobacteriaceae by PCR Not Detected (Not Detect); Enterococcus by PCR Not Detected (Not Detect); Escherichia coli by PCR Not Detected (Not Detect); Klebsiella oxytoca by PCR Not Detected (Not Detect); Klebsiella pneumoniae by PCR Not Detected (Not Detect); Proteus by PCR Not Detected (Not Detect); Pseudomonas aeruginosa by PCR Not Detected (Not Detect); Serratia marcescens by PCR Not Detected (Not Detect); Staphylococcus aureus by PCR Not Detected (Not Detect); Staphylococcus by PCR Not Detected (Not Detect); Streptococcus agalactiae(B)PCR Not Detected (Not Detect); Streptococcus by PCR DETECTED (Not Detect); Streptococcus pneumoniae PCR Not Detected (Not Detect); Streptococcus pyogenes (A) PCR Not Detected (Not Detect)
[2020-08-29] MEDS: *HR* Enoxaparin 40 MG/0.4 ML SYRINGE SQ SCH (06:29)
[2020-08-29] MEDS: lamoTRIgine 100 MG TABLET PO SCH ×2 (07:28→21:27)
[2020-08-29] MEDS: Pantoprazole 40 MG VIAL IVP SCH (07:28)
[2020-08-29] MEDS: diazePAM 5 MG TABLET PO SCH ×4 (07:28→21:27)
[2020-08-29] MEDS ORDERED: Naloxone 0.4 MG/ML INJ IVP PRN (11:05)
[2020-08-29] MEDS ORDERED: Albuterol 2.5 MG/3 ML NEBULIZER IH PRN (11:05)
[2020-08-29] MEDS ORDERED: diazePAM 5 MG TABLET PO SCH (13:00)
[2020-08-29] MEDS ORDERED: *HR* Etomidate 20 MG/10 ML AMPUL IVP ONE (15:00)
[2020-08-29] MEDS ORDERED: *HR* Rocuronium Bromide 50 MG/5 ML VIAL IVP ONE (15:00)
[2020-08-29] MEDS: Thiamine (B-1) 100 MG, Folic Acid 1 MG, MVI, adult with vitamin K 10 ML in 0.9 % Sodi... IVPB SCH (18:19)
[2020-08-30] MEDS: *HR* Enoxaparin 40 MG/0.4 ML SYRINGE SQ SCH (04:43)
[2020-08-30] MEDS: Ipratropium/Albuterol Neb 3 ML IH SCH ×4 (04:50→22:41)
[2020-08-30 05:47] LABS: Basophils % 0.7 %; Eosinophils # 0.2 K/mcL (0.0-0.6); Eosinophils % 4.1 %; Hematocrit 40.7 % (37.5-50.1); Hemoglobin 13.4 g/dL (12.9-16.9); Immature Granulocytes % 0.3 % (0-4); Lymphocytes # 2.1 K/mcL (0.6-4.6); Lymphocytes % 35.4 %; Mean Corpuscular HGB Conc 32.9 g/dL (31.6-35.5); Mean Corpuscular Hemoglobin 32.6 pg (28.0-33.3); Mean Platelet Volume 9.3 fL (9.4-12.4); Monocytes # 0.4 K/mcL (0.0-1.3); Monocytes % 6.1 %; Neutrophils # 3.2 K/mcL (1.6-8.9); Platelet Count 218 K/mcL (140-400); Red Blood Count 4.11 M/mcL (4.19-5.50); Red Cell Distribution Width 12.5 % (11.5-14.5); Segmented Neutrophils % 53.4 %; White Blood Count 5.9 K/mcL (4.3-11.1)
[2020-08-30 05:49] LABS: VBG Ionized Calcium 1.13 mmol/L (1.15-1.35)
[2020-08-30 06:05] LABS: Alanine Aminotransferase 25 Units/L (7-52); Albumin 3.8 g/dL (3.5-5.7); Albumin/Globulin Ratio 1.4 (1.1-2.2); Alkaline Phosphatase 69 Units/L (34-104); Aspartate Amino Transferase 15 Units/L (13-39); BUN/Creatinine Ratio 12 (6-26); Blood Urea Nitrogen 12 mg/dL (6-20); Calcium 8.7 mg/dL (8.6-10.3); Carbon Dioxide 25 mEq/L (23-29); Chloride 106 mEq/L (98-107); Globulin 2.8 g/dL (2.4-3.5); Glucose 128 mg/dL (70-105); Magnesium 2.2 mg/dL (1.6-2.6); Osmolality,Calculated 287 (280-300); Phosphorous 3.3 mg/dL (2.7-4.5); Potassium 3.8 mEq/L (3.5-5.1); Sodium 138 mEq/L (136-145); Total Protein 6.6 g/dL (6.4-8.9); eGFR For African Americans > 60 (> 60); eGFR For Non-African Americans > 60 (> 60)
[2020-08-30] MEDS: diazePAM 5 MG TABLET PO SCH ×4 (07:59→20:09)
[2020-08-30] MEDS: Piperacillin/Tazobactam 3.375 GM in 0.9 % Sodium Chloride Mini Bag 100 ML IVPB SCH ×2 (08:00→16:37)
[2020-08-30] MEDS: lamoTRIgine 100 MG TABLET PO SCH ×3 (08:00→20:09)
[2020-08-30] MEDS: Budesonide/Formoterol 160/4.5 1 PUFF INH IH SCH ×2 (12:59→22:41)
[2020-08-30] MEDS: polyethylene glycoL 3350 17 GM POWD.PACK PO SCH (16:37)
[2020-08-30] MEDS: Thiamine (B-1) 100 MG, Folic Acid 1 MG, MVI, adult with vitamin K 10 ML in 0.9 % Sodi... IVPB SCH (18:23)
[2020-08-30] MEDS: Famotidine 20 MG TABLET PO SCH ×3 (18:26→20:08)
[2020-08-31] MEDS: Piperacillin/Tazobactam 3.375 GM in 0.9 % Sodium Chloride Mini Bag 100 ML IVPB SCH ×4 (00:02→23:00)
[2020-08-31 03:00] LABS: Basophils % 0.6 %; Eosinophils # 0.2 K/mcL (0.0-0.6); Eosinophils % 3.8 %; Hematocrit 41.5 % (37.5-50.1); Hemoglobin 13.4 g/dL (12.9-16.9); Immature Granulocytes % 0.6 % (0-4); Lymphocytes # 1.6 K/mcL (0.6-4.6); Lymphocytes % 32.1 %; Mean Corpuscular HGB Conc 32.3 g/dL (31.6-35.5); Mean Corpuscular Hemoglobin 32.5 pg (28.0-33.3); Mean Corpuscular Volume 100.7 fL (83.0-100.0); Mean Platelet Volume 9.5 fL (9.4-12.4); Monocytes # 0.4 K/mcL (0.0-1.3); Neutrophils # 2.8 K/mcL (1.6-8.9); Platelet Count 218 K/mcL (140-400); Red Blood Count 4.12 M/mcL (4.19-5.50); Red Cell Distribution Width 12.4 % (11.5-14.5); Segmented Neutrophils % 55.9 %
[2020-08-31 03:22] LABS: BUN/Creatinine Ratio 13 (6-26); Blood Urea Nitrogen 14 mg/dL (6-20); Carbon Dioxide 27 mEq/L (23-29); Chloride 105 mEq/L (98-107); Glucose 103 mg/dL (70-105); Magnesium 2.3 mg/dL (1.6-2.6); Osmolality,Calculated 289 (280-300); Phosphorous 3.5 mg/dL (2.7-4.5); Potassium 4.3 mEq/L (3.5-5.1); Sodium 139 mEq/L (136-145); eGFR For African Americans > 60 (> 60); eGFR For Non-African Americans > 60 (> 60)
[2020-08-31] MEDS: Ipratropium/Albuterol Neb 3 ML IH SCH ×4 (04:00→21:40)
[2020-08-31] MEDS ORDERED: Acetaminophen IV 1,000 MG/100 ML BAG IVPB ONE (04:26)
[2020-08-31] MEDS: *HR* Enoxaparin 40 MG/0.4 ML SYRINGE SQ SCH (05:01)
[2020-08-31] MEDS: polyethylene glycoL 3350 17 GM POWD.PACK PO SCH (07:43)
[2020-08-31] MEDS: diazePAM 5 MG TABLET PO SCH ×4 (07:43→20:55)
[2020-08-31] MEDS: lamoTRIgine 100 MG TABLET PO SCH ×2 (07:43→20:55)
[2020-08-31] MEDS: Famotidine 20 MG TABLET PO SCH ×2 (07:44→20:55)
[2020-08-31] MEDS: Budesonide/Formoterol 160/4.5 1 PUFF INH IH SCH ×2 (10:32→21:39)
[2020-08-31] MEDS: Thiamine (B-1) 100 MG in 0.9 % Sodium Chloride 50 ML IVPB SCH (12:45)
[2020-09-01] MEDS: Ipratropium/Albuterol Neb 3 ML IH SCH ×4 (04:12→22:37)
[2020-09-01] MEDS: *HR* Enoxaparin 40 MG/0.4 ML SYRINGE SQ SCH (05:20)
[2020-09-01] MEDS: diazePAM 5 MG TABLET PO SCH ×4 (08:27→21:16)
[2020-09-01] MEDS: polyethylene glycoL 3350 17 GM POWD.PACK PO SCH (08:27)
[2020-09-01] MEDS: lamoTRIgine 100 MG TABLET PO SCH ×2 (08:28→21:16)
[2020-09-01] MEDS: Famotidine 20 MG TABLET PO SCH ×2 (08:29→21:15)
[2020-09-01] MEDS: Piperacillin/Tazobactam 3.375 GM in 0.9 % Sodium Chloride Mini Bag 100 ML IVPB SCH ×2 (08:30→17:28)
[2020-09-01] MEDS: Budesonide/Formoterol 160/4.5 1 PUFF INH IH SCH ×2 (10:10→22:37)
[2020-09-01] MEDS: Thiamine (B-1) 100 MG in 0.9 % Sodium Chloride 50 ML IVPB SCH (15:12)
[2020-09-02] MEDS: Piperacillin/Tazobactam 3.375 GM in 0.9 % Sodium Chloride Mini Bag 100 ML IVPB SCH ×3 (02:33→17:41)
[2020-09-02] MEDS: Ipratropium/Albuterol Neb 3 ML IH SCH ×4 (03:33→23:43)
[2020-09-02] MEDS: *HR* Enoxaparin 40 MG/0.4 ML SYRINGE SQ SCH (05:02)
[2020-09-02] MEDS: lamoTRIgine 100 MG TABLET PO SCH ×2 (08:11→20:27)
[2020-09-02] MEDS: diazePAM 5 MG TABLET PO SCH ×4 (08:11→20:26)
[2020-09-02] MEDS: Famotidine 20 MG TABLET PO SCH ×2 (08:12→20:26)
[2020-09-02] MEDS: polyethylene glycoL 3350 17 GM POWD.PACK PO SCH (08:12)
[2020-09-02] MEDS: Budesonide/Formoterol 160/4.5 1 PUFF INH IH SCH ×2 (11:25→23:43)
[2020-09-02] MEDS: Thiamine (B-1) 100 MG in 0.9 % Sodium Chloride 50 ML IVPB SCH (12:54)
[2020-09-02] MEDS ORDERED: E-Z-HD (BARIUM SULF) SUSPENSION PO ONE (15:00)
[2020-09-03] MEDS: Piperacillin/Tazobactam 3.375 GM in 0.9 % Sodium Chloride Mini Bag 100 ML IVPB SCH ×2 (00:14→08:43)
[2020-09-03] MEDS: Ipratropium/Albuterol Neb 3 ML IH SCH ×2 (04:53→10:02)
[2020-09-03] MEDS: *HR* Enoxaparin 40 MG/0.4 ML SYRINGE SQ SCH (06:15)
[2020-09-03 06:35] LABS: Basophils % 0.3 %; Eosinophils # 0.2 K/mcL (0.0-0.6); Eosinophils % 3.3 %; Hematocrit 42.6 % (37.5-50.1); Immature Granulocytes % 0.7 % (0-4); Lymphocytes # 1.6 K/mcL (0.6-4.6); Lymphocytes % 25.6 %; Mean Corpuscular HGB Conc 32.9 g/dL (31.6-35.5); Mean Corpuscular Hemoglobin 33.2 pg (28.0-33.3); Mean Corpuscular Volume 100.9 fL (83.0-100.0); Mean Platelet Volume 9.1 fL (9.4-12.4); Monocytes # 0.5 K/mcL (0.0-1.3); Monocytes % 7.6 %; Neutrophils # 3.8 K/mcL (1.6-8.9); Platelet Count 247 K/mcL (140-400); Red Blood Count 4.22 M/mcL (4.19-5.50); Red Cell Distribution Width 12.5 % (11.5-14.5); Segmented Neutrophils % 62.5 %; White Blood Count 6.1 K/mcL (4.3-11.1)
[2020-09-03 06:57] LABS: BUN/Creatinine Ratio 17 (6-26); Blood Urea Nitrogen 17 mg/dL (6-20); Calcium 9.5 mg/dL (8.6-10.3); Carbon Dioxide 26 mEq/L (23-29); Chloride 103 mEq/L (98-107); Glucose 117 mg/dL (70-105); Magnesium 2.2 mg/dL (1.6-2.6); Osmolality,Calculated 287 (280-300); Phosphorous 3.8 mg/dL (2.7-4.5); Potassium 3.9 mEq/L (3.5-5.1); Sodium 137 mEq/L (136-145); eGFR For African Americans > 60 (> 60); eGFR For Non-African Americans > 60 (> 60)
[2020-09-03] MEDS: diazePAM 5 MG TABLET PO SCH ×2 (08:44→14:24)
[2020-09-03] MEDS: lamoTRIgine 100 MG TABLET PO SCH (08:45)
[2020-09-03] MEDS: polyethylene glycoL 3350 17 GM POWD.PACK PO SCH ×2 (08:45→08:56)
[2020-09-03] MEDS: Famotidine 20 MG TABLET PO SCH (08:45)
[2020-09-03] MEDS: Thiamine (B-1) 100 MG in 0.9 % Sodium Chloride 50 ML IVPB SCH (08:53)
[2020-09-03] MEDS: Budesonide/Formoterol 160/4.5 1 PUFF INH IH SCH (10:02)
[2020-09-03 10:57] VITALS: BP 110/70
== END 2020-09-03 14:49 | disposition home health service (06) | DRG 137 ==
LOC: EMEROOARM 20:31 → SUATTDRO 23:01 → ICNU 23:01 → 3ANU 08-29 15:18
PROVIDERS: ADMIT Internal Medicine; ATTEND Internal Medicine